=== PATIENT | female | born 1975 | race Hispanic/Latino ===

== ENCOUNTER 2016-08-16 05:07 | Emergency (ER) | payer SELFPAY ==
[2016-08-16 06:18] VITALS: BP 136/103
== END 2016-08-16 06:10 | disposition left against medical advice (07) ==
LOC: ED 05:07
DX: H57.8 Other specified disorders of eye and adnexa (principal); Z53.21 Procedure and treatment not carried out due to patient leaving prior to being seen by health care provider

== ENCOUNTER 2020-07-04 19:55 | Emergency (ER) | payer SELFPAY | END 2020-07-04 20:00 | disposition left against medical advice (07) | LOC: ED 19:55 | DX: Z53.21 Procedure and treatment not carried out due to patient leaving prior to being seen by health care provider (principal) ==